=== PATIENT | female | born 1955 | race Hispanic/Latino ===

== ENCOUNTER 2017-05-26 10:58 | Outpatient (CLI) | payer OTHER | END 2017-05-26 10:59 | disposition home or self-care (01) | LOC: BICRAD 10:58 | PROVIDERS: ATTEND Family Medicine | DX: M25.551 Pain in right hip (principal); M85.80 Other specified disorders of bone density and structure, unspecified site; M65.28 Calcific tendinitis, other site; M16.11 Unilateral primary osteoarthritis, right hip | CPT/HCPCS: 72170 ==

== ENCOUNTER 2018-05-04 08:47 | Outpatient (CLI) | payer OTHER ==
--- NOTE | 2018-05-04 10:48 | CT ---
CT ABDOMEN AND PELVIS WITH CONTRAST: Date: 05/04/18 HISTORY: Abdominal pain. COMPARISON: Ultrasound dated 03/01/14. FINDINGS: Lung bases are clear. No pericardial effusion. The spleen, pancreas, and adrenal glands are all unremarkable. No free intraperitoneal gas or fluid. No dilated loops of large or small bowel. The appendix measures 8.0 mm. No periappendiceal inflammation. Aortoiliac contour is nonaneurysmal. No retroperitoneal adenopathy. The spleen, liver, and gallbladder are all unremarkable. The kidneys are without hydronephrosis. Too small to characterize hypodensities are present in the left kidney. The skeletal system is without osteolytic or osteoblastic lesions. IMPRESSION: 1. No acute inflammatory process in the abdomen or pelvis. 2. Somewhat bulbous appearance to the tip of the appendix measuring up to 8-9 mm. As a conservative measure, follow-up CT in 6 months to 1 year is recommended to document stability. No adjacent adenopa thy. 3. Peripheral hyperenhancement within the liver, hepatic segment V, most likely a hemangioma. This s hould also be reevaluated on the follow-up CT in 6-12 months. POS: [facility]
[2018-05-04] MEDS ORDERED: ISOVUE-370 76%-LOCM 1 ML ONE (16:28)
== END 2018-05-04 08:48 | disposition home or self-care (01) ==
LOC: BICCT 08:47
PROVIDERS: ATTEND Family Medicine
DX: R10.9 Unspecified abdominal pain (principal)
CPT/HCPCS: 74177

== ENCOUNTER 2018-06-10 09:10 | Outpatient (CLI) | payer OTHER ==
--- NOTE | 2018-06-10 11:35 | RAD ---
LEFT HUMERUS 2 VIEWS: Date: 06/10/18 HISTORY: Injury, left arm pain. FINDINGS/IMPRESSION: The left humerus is intact. POS: [facility]
--- NOTE | 2018-06-10 12:21 | RAD ---
THREE VIEWS LEFT SHOULDER: HISTORY: Injury left shoulder and upper arm. FINDINGS: AP internally, externally, and scapula-Y views left shoulder obtained. Three views left shoulder demonstrate mild AC joint degenerative changes. No evidence of acute fract ures, subluxations, or bony lesions. IMPRESSION: No evidence of acute left shoulder abnormality is seen. POS: [facility]
== END 2018-06-10 09:11 | disposition home or self-care (01) ==
LOC: BICRAD 09:10
PROVIDERS: ATTEND Family Medicine
DX: S49.92XA Unspecified injury of left shoulder and upper arm, initial encounter (principal); T22.232A Burn of second degree of left upper arm, initial encounter

== ENCOUNTER 2019-02-09 10:22 | Outpatient (CLI) | payer OTHER ==
--- NOTE | 2019-02-09 12:10 | BD ---
DEXA BONE DENSITY STUDY: Date: 02/09/19 HISTORY: Postmenopausal. FINDINGS: Lumbar Spine: BMD (g/cm2) L1 0.670 T-Score: -2.9 L2 0.802 T-Score: -2.1 L3 0.719 T-Score: -3.3 L4 0.755 T-Score: -2.8 Total 0.739 T-Score: -2.8 Left Femoral Neck: 0.704 T-Score: -1.3 Total Femur: 0.781 T-Score: -1.3 IMPRESSION: Osteopenia of the left femoral neck and osteoporosis of the lumbar spine. POS: [facility]
--- NOTE | 2019-02-09 13:37 | MMO ---
Bilateral MAMMO Bilat Screen [facility]. CLINICAL HISTORY: Patient is 63 years old and is seen for screening. The patient has no family history of breast cancer. The patient has no personal history of cancer. VIEWS: The views performed were: bilateral craniocaudal with tomosynthesis; bilateral mediolateral oblique; and bilateral mediolateral oblique with tomosynthesis. FILMS COMPARED: The present examination has been compared to prior imaging studies performed at [facility] on 12/06/2013, 12/07/2014, 12/31/2015 and 01/26/2017. This study has been interpreted with the assistance of computer-aided detection. MAMMOGRAM FINDINGS: There are scattered fibroglandular densities. There are no suspicious masses, suspicious calcifications, or new areas of architectural distortion. IMPRESSION: THERE IS NO MAMMOGRAPHIC EVIDENCE OF MALIGNANCY. A ROUTINE FOLLOW-UP MAMMOGRAM IN 1 YEAR IS RECOMMENDED. THE RESULTS OF THIS EXAM WERE SENT TO THE PATIENT. ACR BI-RADS Category 1 - Negative MAMMOGRAPHY NOTE: 1. A negative mammogram report should not delay a biopsy if a dominant of clinically suspicious mass is present. 2. Approximately 10% to 15% of breast cancers are not detected by mammography. 3. Adenosis and dense breasts may obscure an underlying neoplasm. Reported by: PETER CAN MD Electonically Signed: [id number]
== END 2019-02-09 10:23 | disposition home or self-care (01) ==
LOC: BICMAMMO 10:22
PROVIDERS: ATTEND Family Medicine
DX: Z12.31 Encounter for screening mammogram for malignant neoplasm of breast (principal); Z13.820 Encounter for screening for osteoporosis; M85.9 Disorder of bone density and structure, unspecified; M85.852 Other specified disorders of bone density and structure, left thigh; M81.0 Age-related osteoporosis without current pathological fracture
CPT/HCPCS: 77063; 77067; 77080

== ENCOUNTER 2020-02-21 10:55 | Outpatient (CLI) | payer OTHER ==
--- NOTE | 2020-02-21 11:22 | MMO ---
Bilateral MAMMO Bilat Screen [facility]. CLINICAL HISTORY: Patient is 65 years old and is seen for screening. The patient has no family history of breast cancer. The patient has no personal history of cancer. VIEWS: The views performed were: bilateral craniocaudal with tomosynthesis and bilateral mediolateral oblique with tomosynthesis. FILMS COMPARED: The present examination has been compared to prior imaging studies performed at [facility] on 12/07/2014, 12/31/2015, 01/26/2017 and 02/09/2019. This study has been interpreted with the assistance of computer-aided detection. MAMMOGRAM FINDINGS: There are scattered fibroglandular densities. There are stable benign appearing calcifications seen in both breasts. There are no suspicious masses, suspicious calcifications, or new areas of architectural distortion. IMPRESSION: THERE IS NO MAMMOGRAPHIC EVIDENCE OF MALIGNANCY. A ROUTINE FOLLOW-UP MAMMOGRAM IN 1 YEAR IS RECOMMENDED. THE RESULTS OF THIS EXAM WERE SENT TO THE PATIENT. ACR BI-RADS Category 2 - Benign finding MAMMOGRAPHY NOTE: 1. A negative mammogram report should not delay a biopsy if a dominant of clinically suspicious mass is present. 2. Approximately 10% to 15% of breast cancers are not detected by mammography. 3. Adenosis and dense breasts may obscure an underlying neoplasm. Reported by: PATRICK LATIF MD Electonically Signed: [id number]
== END 2020-02-21 10:56 | disposition home or self-care (01) ==
LOC: BICMAMMO 10:55
PROVIDERS: ATTEND Family Medicine
DX: Z12.31 Encounter for screening mammogram for malignant neoplasm of breast (principal)
CPT/HCPCS: 77063; 77067

== ENCOUNTER 2021-03-12 12:19 | Outpatient (CLI) | payer OTHER | END 2021-03-12 12:20 | disposition home or self-care (01) | LOC: BICMAMMO 12:19 | PROVIDERS: ATTEND Family Medicine | DX: Z12.31 Encounter for screening mammogram for malignant neoplasm of breast (principal) | CPT/HCPCS: 77063; 77067 ==

== ENCOUNTER 2022-01-16 12:31 | Outpatient (CLI) | payer MEDICARE | END 2022-01-16 12:32 | disposition home or self-care (01) | LOC: BICRAD 12:31 | PROVIDERS: ATTEND Family Medicine | DX: R07.9 Chest pain, unspecified (principal); I51.7 Cardiomegaly | CPT/HCPCS: 71045 ==

== ENCOUNTER 2022-01-27 13:15 | Outpatient (CLI) | payer MEDICARE | END 2022-01-27 13:16 | disposition home or self-care (01) | LOC: BICMAMMO 13:15 | PROVIDERS: ATTEND Family Medicine | DX: M81.0 Age-related osteoporosis without current pathological fracture (principal); M85.851 Other specified disorders of bone density and structure, right thigh; M85.852 Other specified disorders of bone density and structure, left thigh | CPT/HCPCS: 77080 ==

== ENCOUNTER 2022-03-04 07:35 | Outpatient (CLI) | payer MEDICARE | END 2022-03-04 07:36 | disposition home or self-care (01) | LOC: TBSIIMAG 07:35 | PROVIDERS: ATTEND Psychiatry & Neurology Neurology | DX: M48.02 Spinal stenosis, cervical region (principal); M48.07 Spinal stenosis, lumbosacral region; M50.321 Other cervical disc degeneration at C4-C5 level; M50.322 Other cervical disc degeneration at C5-C6 level; M50.323 Other cervical disc degeneration at C6-C7 level | CPT/HCPCS: 72141; 72148 ==

== ENCOUNTER 2022-03-13 09:26 | Outpatient (CLI) | payer MEDICARE | END 2022-03-13 09:27 | disposition home or self-care (01) | LOC: BICMAMMO 09:26 | PROVIDERS: ATTEND Family Medicine | DX: Z12.31 Encounter for screening mammogram for malignant neoplasm of breast (principal) | CPT/HCPCS: 77063; 77067 ==

== ENCOUNTER 2022-09-04 13:43 | Outpatient (CLI) | payer MEDICARE | END 2022-09-04 13:44 | disposition home or self-care (01) | LOC: BICRAD 13:43 | PROVIDERS: ATTEND Family Medicine | DX: R19.00 Intra-abdominal and pelvic swelling, mass and lump, unspecified site (principal); R10.2 Pelvic and perineal pain; R61 Generalized hyperhidrosis; M35.9 Systemic involvement of connective tissue, unspecified | CPT/HCPCS: 71046; 74019 ==

== ENCOUNTER 2022-09-11 09:01 | Outpatient (CLI) | payer MEDICARE | END 2022-09-11 09:02 | disposition home or self-care (01) | LOC: BICMAMMO 09:01 | PROVIDERS: ATTEND Family Medicine | DX: Z13.820 Encounter for screening for osteoporosis (principal); M85.89 Other specified disorders of bone density and structure, multiple sites | CPT/HCPCS: 77080 ==

== ENCOUNTER 2023-03-08 10:34 | Outpatient (CLI) | payer MEDICARE ==
[2023-03-08] MEDS ORDERED: Iopamidol 370 76% 100 ML VIAL ONE (14:54)
== END 2023-03-08 10:35 | disposition home or self-care (01) ==
LOC: BICCT 10:34
PROVIDERS: ATTEND Internal Medicine Gastroenterology
DX: R10.13 Epigastric pain (principal); R10.12 Left upper quadrant pain; K55.1 Chronic vascular disorders of intestine
CPT/HCPCS: 74177; 82565

== ENCOUNTER 2023-04-08 12:44 | Outpatient (CLI) | payer MEDICARE | END 2023-04-08 12:45 | disposition home or self-care (01) | LOC: BICMAMMO 12:44 | PROVIDERS: ATTEND Family Medicine | DX: Z12.31 Encounter for screening mammogram for malignant neoplasm of breast (principal); N64.89 Other specified disorders of breast | CPT/HCPCS: 77063; 77067 ==

== ENCOUNTER 2023-04-20 09:22 | Outpatient (CLI) | payer MEDICARE | END 2023-04-20 09:23 | disposition home or self-care (01) | LOC: BICMAMMO 09:22 | PROVIDERS: ATTEND Family Medicine | DX: N64.89 Other specified disorders of breast (principal) | CPT/HCPCS: 76642; 77065; G0279 ==